=== PATIENT | male | born 1945 | race Two or more races ===

== ENCOUNTER 2019-01-06 10:51 | Emergency (ER) | payer MEDICARE, BC ==
[~2019-01-06] VITALS: Ht 180.3 cm; Wt 97.1 kg
[2019-01-06 10:58] VITALS: BP 135/83
--- NOTE | 2019-01-06 11:39 | NUR ---
UNDER PRESSER AT BEDSIDE
== END 2019-01-06 12:35 | disposition home or self-care (01) ==
LOC: ER 10:53
DX: S46.001A Unspecified injury of muscle(s) and tendon(s) of the rotator cuff of right shoulder, initial encounter (principal); I10 Essential (primary) hypertension; I25.10 Atherosclerotic heart disease of native coronary artery without angina pectoris; E78.00 Pure hypercholesterolemia, unspecified; Z98.890 Other specified postprocedural states; X58.XXXA Exposure to other specified factors, initial encounter; Y93.89 Activity, other specified; Y92.89 Other specified places as the place of occurrence of the external cause; Y99.8 Other external cause status
CPT/HCPCS: 73030-TC